=== PATIENT | female | born 1935 | race Caucasian/White ===

== ENCOUNTER 2020-09-30 01:35 | Emergency (ER) | payer MEDICARE, OTHER ==
[~2020-09-30 01:35] MED LIST: ASPIRIN EC81 MG PO; ATIVAN0.5 MG PO; AZITHROMYCIN 2250 MG PO; COREG12.5 MG PO; DUONEB 2.5-0.5M1 AMP NEB; ELIQUIS2.5 MG PO; FLOVENT DISKUS50 MCG; FUROSEMIDE40 MG PO; IRON325 M1 PO; KEFLEX500 MG PO; KLOR-CON M 1010 MEQ PO; LEVAQUIN500 MG PO; MOBIC7.5 MG PO; NORCO 5-325 TA1 EACH PO; PROZAC20 MG PO; PULMICORT0.5 MG/2 M NEB; SYNTHROID75 MCG PO; TESSALON PERLE100 MG PO; UROCIT-K10 MEQ PO; VALACYCLOVIR1000 MG PO; VITAMIN B-121000 MC1 PO; ZOLPIDEM 10MG T10 MG PO
[2020-09-30] MEDS ORDERED: ULTRAM50 MG PO (05:38)
== END 2020-09-30 06:00 | disposition home or self-care (01) ==
LOC: FER 01:35
DX: M25.462 Effusion, left knee (principal); M79.662 Pain in left lower leg; M54.6 Pain in thoracic spine; D35.01 Benign neoplasm of right adrenal gland; M25.552 Pain in left hip; Z95.0 Presence of cardiac pacemaker
CPT/HCPCS: 72128; 72131; 72192; 73564; 96372; J1030; J1170

== ENCOUNTER 2021-08-28 21:21 | Emergency (ER) | payer MEDICARE, OTHER ==
[~2021-08-28 21:21] MED LIST changes: +ULTRAM50 MG PO
[2021-08-28 22:07] LABS: BASOPHIL 0.1 % (0-2); EOSINOPHIL 0.3 % (0-7); HCT 40.4 % (37.0-47.0); HGB 12.7 g/dl (12.5-16.0); LYMPHOCYTE 1.4 % (15-48); MCHC 31.4 g/dL (32.0-36.0); MCV 98.5 fL (78.0-100.0); MONOCYTE 4.1 % (0-12); MPV 10.3 fL (6.0-9.5); NRBC 0; PLT 151 K/uL (150-400); RDW 13.7 % (11.5-14.0); WBC 6.9 K/uL (4.0-10.5)
[2021-08-28 22:08] LABS: NEUTROPHIL 93.7 % (41-80)
[2021-08-28 22:16] LABS: INR 1.45 (0.9-1.2); PROTHROMBIN TIME 16.9 SECONDS (11.8-13.4)
[2021-08-28 22:17] LABS: PTT 57.3 SECONDS (24.4-34.7)
[2021-08-28 22:40] LABS: LACTIC ACID 1.2 mmol/L (0.4-1.9)
[2021-08-28 22:53] LABS: ALBUMIN 4.1 g/dL (3.4-5.0); ALKALINE PHOSHATASE 140 U/L (46-116); ALT <6 U/L (14-59); AST 32 U/L (15-37); BILIRUBIN - TOTAL 0.4 mg/dL (0.2-1.0); BUN 24 mg/dL (7-18); BUN/CREAT RATIO (CALC) 30.8 RATIO; CHLORIDE 101 mmol/L (98-107); CO2 (BICARBONATE) 24 mmol/L (21-32); CREATININE 0.78 mg/dL (0.51-0.95); GLOBULIN (CALCULATION) 3.7 g/dL; GLUCOSE 149 mg/dL (74-106); POTASSIUM 4.1 mmol/L (3.5-5.1); TOTAL PROTEIN 7.8 g/dL (6.4-8.2)
[2021-08-28 23:13] LABS: CORONAVIRUS 2019 SARS-COV-2 NEGATIVE (NEGATIVE); INFLUENZA A NAA NEGATIVE (NEGATIVE)
[2021-08-29 00:43] LABS: BILIRUBIN NEGATIVE (NEGATIVE); BLOOD 2+ Ery/uL (NEGATIVE); CLARITY CLEAR (CLEAR); COLOR YELLOW (YELLOW); GLUCOSE (U) NORMAL (NORMAL); LEUKOCYTES NEGATIVE Leu/uL (NEGATIVE); NITRITE NEGATIVE (NEGATIVE); PROTEIN NEGATIVE (NEGATIVE); UROBILINOGEN 0.2 mg/dL (0.2-1.0); pH 6.5 (5.0-9.0)
[2021-08-29 00:46] LABS: BACTERIA TRACE
[2021-08-29] MEDS ORDERED: ONDANSETRON ODT4 MG PO (00:56)
[2021-08-29] MEDS ORDERED: FLOMAX0.4 MG PO (00:56)
== END 2021-08-29 02:00 | disposition home or self-care (01) ==
LOC: FER 21:21
PROVIDERS: Emergency Medicine
DX: N13.2 Hydronephrosis with renal and ureteral calculous obstruction (principal); R07.89 Other chest pain; I11.0 Hypertensive heart disease with heart failure; I50.9 Heart failure, unspecified; Z95.0 Presence of cardiac pacemaker; Z20.822 Contact with and (suspected) exposure to COVID-19
CPT/HCPCS: 36415; 71250; 80053; 81001; 83605; 84145; 84484; 85025; 85610; 85730; 87040; 87088; 93005; 94640; 94664; J1885; J2405; U0002

== ENCOUNTER → 2022-04-08 | Day surgery (SDC) | payer MEDICARE, OTHER ==
[~2022-04-08] VITALS: Ht 165.1 cm; Wt 74.5 kg
[~2022-04-08] MED LIST changes: +ACETAMINOPHEN325 MG PO; +ALLERGY RELIEF10 M1 PO; +FLOMAX0.4 MG PO; +LIPITOR 10MG TA10 MG PO; +ONDANSETRON ODT4 MG PO; +PRESERVISION A1 EAC2 PO; +VITAMIN D21250 MCG PO; +WIXELA 250-501 EACH PO
== END | disposition home or self-care (01) ==
LOC: FAS 12:18
DX: K58.1 Irritable bowel syndrome with constipation (principal); K57.30 Diverticulosis of large intestine without perforation or abscess without bleeding; K62.89 Other specified diseases of anus and rectum; I11.0 Hypertensive heart disease with heart failure; I50.9 Heart failure, unspecified; J44.9 Chronic obstructive pulmonary disease, unspecified; E03.9 Hypothyroidism, unspecified; E78.00 Pure hypercholesterolemia, unspecified; Z87.891 Personal history of nicotine dependence; Z79.01 Long term (current) use of anticoagulants
CPT/HCPCS: J2704; J7120